=== PATIENT | male | born 1960 | race Caucasian/White ===

== ENCOUNTER 2024-04-12 13:27 | Emergency (ER) | payer MEDICARE ==
[~2024-04-12] VITALS: Ht 190.5 cm; Wt 84.6 kg
[2024-04-12 13:38] VITALS: BP 134/79; PULSE 86; RESP 16; TEMP 98; O2SAT 97
== END 2024-04-12 13:48 | disposition left against medical advice (07) ==
LOC: ER 13:28
DX: M25.521 Pain in right elbow (principal); Z53.21 Procedure and treatment not carried out due to patient leaving prior to being seen by health care provider; Z88.1 Allergy status to other antibiotic agents